=== PATIENT | female | born 1960 | race Caucasian/White ===

== ENCOUNTER 2018-09-01 00:29 | Emergency (ER) | payer MEDICAID, OTHER ==
[~2018-09-01] VITALS: Ht 157.5 cm; Wt 63.5 kg
[2018-09-01] MEDS ORDERED: OXYBUTYNIN CHLOR5 M2 PO (00:30)
[2018-09-01] MEDS ORDERED: RISPERDAL0.25 MG ORAL (00:31)
[2018-09-01 00:58] VITALS: BP 99/51
--- NOTE | 2018-09-01 01:03 | NUR ---
ED Nurse Note: Pt was brought in by ra [facility] from [facility] care c/o chest pain x 2 hours. pt was given 161 asa and 0.4 nitroglycerin on the field. pt neuro assesment is alert and oriented times 4. pt pupiles are rounds and reactive to light and accomodating. pt respritory rate and rhythm is within define limits with no adventicious sounds noted. pt is saturating at 94 percent. pt heart tones are within normal limits such as S1 and S2 noted. pt Hr and blood pressure are within normal limits. all extremity pulses sync with ascultated apical pulse. pt points to sternal area and describes her chest pain to be 8/10 pain that feels stabbing like.
[2018-09-01 01:09] LABS: BASOPHILS % (AUTO) 0.4 % (0.0-2.0); EOSINOPHILS % (AUTO) 0.4 % (0.0-3.0); HEMATOCRIT 41.2 % (37.0-47.0); LYMPHOCYTES % (AUTO) 14.1 % (20.0-45.0); MEAN CORPUSCULAR VOLUME 102 FL (80-99); MONOCYTES % (AUTO) 5.6 % (1.0-10.0); NEUTROPHILS % (AUTO) 79.5 % (45.0-75.0); PLATELET COUNT 188 K/UL (150-450); RED BLOOD COUNT 4.05 M/UL (4.20-5.40); RED CELL DISTRIBUTION WIDTH 11.7 % (11.6-14.8); WHITE BLOOD COUNT 10.5 K/UL (4.8-10.8)
[2018-09-01 01:35] LABS: ANION GAP 9 mmol/L (5-15); BLOOD UREA NITROGEN 18 mg/dL (7-18); CALCIUM 9.2 MG/DL (8.5-10.1); CARBON DIOXIDE 29 MMOL/L (21-32); CHLORIDE 101 MMOL/L (98-107); POTASSIUM 3.8 MMOL/L (3.5-5.1); SODIUM 139 MMOL/L (136-145)
[2018-09-01 01:43] LABS: ALANINE AMINOTRANSFERASE 18 U/L (12-78); ALBUMIN/GLOBULIN RATIO 1.1 (1.0-2.7); ALKALINE PHOSPHATASE 79 U/L (46-116); ASPARTATE AMINO TRANSFERASE 12 U/L (15-37); BILIRUBIN,TOTAL 0.3 MG/DL (0.2-1.0); CKMB 0.8 NG/ML (0.0-3.6); CREATINE KINASE 101 U/L (26-308)
--- NOTE | 2018-09-01 01:57 | NUR ---
ED Nurse Note: Contacted [facility] to give report at [phone]. no answer.
--- NOTE | 2018-09-01 02:01 | NUR ---
Spoke with Sravan at [facility]-aware of patients return home by ambulance. Spoke with Angie at [id number].
--- NOTE | 2018-09-01 02:22 | Emergency Room Report ---
History of Present Illness General Chief Complaint: Chest Pain Source: Patient, Medical Record, EMS Present Illness HPI Is a 58-year-old female who has a history of schizophrenia. She also smokes a pack and half a day. She presents with chief complaint of left-sided chest pain. Onset was acute after smoking. Occurred about 2 hours ago. No nausea no vomiting. No fever chills but no radiation. No exertional component. Denies any other complaint. Call 911 from the [facility]. She received aspirin and nitroglycerin without any relief. Denies any other complaint. Allergies: Coded Allergies: CHLORPROMAZINE (Unverified Allergy, Unknown, 11/23/14) HALOPERIDOL (Unverified Allergy, Unknown, 11/23/14) Patient History Past Medical History: see triage record, old chart reviewed, psych hx Past Surgical History: other Pertinent Family History: none Social History: Reports: smoking Last Menstrual Period: 10 years ago Now: No Immunizations: other Reviewed Nursing Documentation: PMH: Agreed; PSxH: Agreed Nursing Documentation-PMH History Of Psychiatric Problem: Yes - schizophrenia Review of Systems Eye: Denies: eye pain, blurred vision ENT: Denies: ear pain, nose congestion, throat swelling Respiratory: Denies: cough, shortness of breath Cardiovascular: Reports: chest pain; Denies: palpitations Gastrointestinal: Denies: abdominal pain, diarrhea, nausea, vomiting Musculoskeletal: Denies: back pain, joint pain Skin: Denies: rash Neurological: Denies: headache, numbness Endocrine: Denies: increased thirst, increased urine Hematologic/Lymphatic: Denies: easy bruising All Other Systems: negative except mentioned in HPI Physical Exam Vital Signs Date Time Temp Pulse Resp B/P (MAP) Pulse Ox O2 Delivery O2 Flow Rate FiO2 09/01/18 00:25 97.5 60 18 115/66 99 Room Air 09/01/18 00:58 94 vitals normal Sp02 EP Interpretation: reviewed, normal General Appearance: well appearing, no apparent distress, alert Head: normocephalic, atraumatic Eyes: bilateral eye PERRL, bilateral eye EOMI ENT: hearing grossly normal, normal pharynx Neck: full range of motion, supple, no meningismus Respiratory: chest non-tender, lungs clear, normal breath sounds Cardiovascular #1: regular rate, rhythm, no murmur Gastrointestinal: normal bowel sounds, non tender, no mass, no organomegaly, no bruit, non-distended Musculoskeletal: back normal, gait/station normal, normal range of motion Psychiatric: mood/affect normal Skin: warm/dry Medical Decision Making Diagnostic Impression: Primary Impression: Chest pain Qualified Codes: R07.9 - Chest pain, unspecified ER Course Patient with atypical chest pain. No evidence of ACS, PE, dissection to name a few. We'll discharge home. Lab Results Impression labs are normal EKG Diagnostic Results Rate: normal Rhythm: NSR ST Segments: no acute changes Rhythm Strip Diag. Results EP Interpretation: yes Rate: 92 Rhythm: NSR, no PVC's, no ectopy Chest X-Ray Diagnostic Results Chest X-Ray Diagnostic Results : Chest X-Ray Ordered: Yes # of Views/Limited/Complete: 1 View Indication: Chest Pain EP Interpretation: Yes Interpretation: no consolidation, no effusion, no pneumothorax, no acute cardiopulmonary disease Impression: No acute disease Electronically Signed by: David Cochran MD Last Vital Signs Date Time Temp Pulse Resp B/P (MAP) Pulse Ox O2 Delivery O2 Flow Rate FiO2 09/01/18 00:58 90 18 Room Air 94 09/01/18 00:58 97.5 99/51 99 Status: improved Disposition: HOME, SELF-CARE Condition: Stable Patient Instructions: Nonspecific Chest Pain Additional Instructions: Follow-up with your doctor in 7 days. Return if symptom worsen. David Cochran MD Sep 01, 2018 02:22
[2018-09-01 02:23] VITALS: BP 101/75
[2018-09-01 02:25] VITALS: BP 101/75
--- NOTE | 2018-09-01 02:27 | NUR ---
ER DISCHARGE NOTE: Patient is cleared to be discharged per ERMD, pt is aox4, on room air, with stable vital signs. pt was given dc and prescription instructions, pt was able to verbalize understanding, pt id band and iv site removed without complications. pt is able to ambulate with steady gait. pt took all belongings.
--- NOTE | 2018-09-01 02:32 | Diagnostic Imaging Report ---
EXAM: XR Chest, 1 View CLINICAL HISTORY: CP TECHNIQUE: Frontal view of the chest. COMPARISON: No relevant prior studies available. FINDINGS: Lungs: Faint developing opacity in the left lower lung. This may reflect atelectasis or developing infiltrate. Mild streaky density in the right lung base, likely atelectasis. Pleural space: No effusion. No pneumothorax. Heart: Cardiovascular silhouette, upper limits of normal. Mediastinum: Unremarkable. Bones/joints: Unremarkable. Vasculature: Mildly tortuous thoracic aorta. Tubes, lines and devices: Overlying chest leads obscure portions of the chest. Upper abdomen: Mildly distended bowel loop in the visualized upper abdomen, nonspecific. IMPRESSION: Left basilar atelectasis versus developing infiltrate. Nonspecific mildly distended bowel loop in the visualized upper abdomen
== END 2018-09-01 02:40 | disposition home or self-care (01) ==
LOC: EDBD 00:29 → EMR 01:20
DX: R07.9 Chest pain, unspecified (principal); Z72.0 Tobacco use
CPT/HCPCS: 36415; 71045; 80053; 82550; 82553; 84484; 85025; 93005; 99284